=== PATIENT | female | born 1965 | race Caucasian/White ===

== ENCOUNTER 2019-01-04 14:47 | Emergency (ER) | payer MEDICAID ==
[2019-01-04] MEDS ORDERED: Lactated Ringers 1,000 ML IV ONE (16:05)
[2019-01-04] MEDS ORDERED: Sodium Chloride 0.9% 80 ML IV ONE (16:19)
[2019-01-04] MEDS ORDERED: Sodium Chloride 0.9% 10 ML Syringe FLUSH ONE (16:19)
--- NOTE | 2019-01-04 16:23 | EDM.PDOC ---
ED HPI GENERAL MEDICAL PROBLEM - General Chief Complaint: Abdominal Pain Stated Complaint: LOWER ABD PAIN Time Seen by Provider: 01/04/19 15:45 Source of Information: Reports: Patient History Limitations: Reports: No Limitations - History of Present Illness INITIAL COMMENTS - FREE TEXT/NARRATIVE: 53 yo with concerns of RLQ abdominal pain Started insidiously approximately 3 days ago. Initially attributed to her IBS, but now it is severe. It it worse with movement, walking, sitting. It is a stabbing pain in the right lower quadrant with radiation into the pelvis. Associated anorexia and chills. No fever. No urinary symptoms. No N/V. No vaginal bleeding or discharge. No prior abdominal surgeries. 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: - Infectious Disease History Infectious Disease History: Reports: Chicken Pox - Past Surgical History Neurological Surgical History: Reports: Other (See Below) 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 Social & Family History - Tobacco Use Smoking Status *Q: Current Every Day Smoker Years of Tobacco use: 30 Packs/Tins Daily: 0.5 - Caffeine Use Caffeine Use: Reports: Coffee - Recreational Drug Use Recreational Drug Use: No ED ROS GENERAL - Review of Systems Review Of Systems: See Below Constitutional: Reports: Chills HEENT: Reports: No Symptoms Respiratory: Reports: No Symptoms Cardiovascular: Reports: No Symptoms Endocrine: Reports: No Symptoms GI/Abdominal: Reports: Abdominal Pain, Anorexia : Reports: No Symptoms Musculoskeletal: Reports: No Symptoms Skin: Reports: No Symptoms Neurological: Reports: No Symptoms Psychiatric: Reports: No Symptoms Hematologic/Lymphatic: Reports: No Symptoms Immunologic: Reports: No Symptoms ED EXAM, GI/ABD - Physical Exam Exam: See Below Exam Limited By: No Limitations General Appearance: Alert, No Apparent Distress Ears: Normal External Exam Nose: Normal Inspection Throat/Mouth: Normal Inspection Head: Atraumatic, Normocephalic Neck: Normal Inspection Respiratory/Chest: No Respiratory Distress, Lungs Clear Cardiovascular: Regular Rate, Rhythm GI/Abdominal Exam: Soft, No Distention, Tender (Reports diffuse lower abdominal tenderness with minimal light tough, will not tolerate exam) Back Exam: Normal Inspection. No: CVA Tenderness (R), CVA Tenderness (L) Extremities: Normal Inspection Neurological: Alert, Oriented Psychiatric: Normal Affect, Normal Mood Skin Exam: Warm, Dry Course - Vital Signs Last Recorded V/S: Last Vital Signs Temp 36.8 C 01/04/19 15:08 Pulse 66 01/04/19 17:34 Resp 22 H 01/04/19 15:08 BP 139/88 01/04/19 18:03 Pulse Ox 94 L 01/04/19 15:08 - Orders/Labs/Meds Orders: Active Orders 24 hr Category Date Time Status CANCER ANTIGEN (CA) 125 Stat Lab 01/04/19 18:23 Ordered CEA Stat Lab 01/04/19 18:24 Ordered UA W/MICROSCOPIC [URIN] Stat Lab 01/04/19 16:05 Ordered Iopamidol [Isovue-300 (61%)] Med 01/04/19 16:30 Active 100 ml IV . DIRECTED Medication Orders Iopamidol (Isovue-300 (61%)) 100 ml IV . DIRECTED CHU Last Admin: 01/04/19 16:59 Dose: 100 ml Labs: Laboratory Tests 01/04/19 01/04/19 Range/Units 16:08 16:08 WBC 10.8 (4.5-11.0) K/uL RBC 5.29 (3.30-5.50) M/uL Hgb 15.3 H (12.0-15.0) g/dL Hct 47.3 (36.0-48.0) % MCV 89 (80-98) fL MCH 29 (27-31) pg MCHC 32 (32-36) % Plt Count 281 (150-400) K/uL Sodium 137 L (140-148) mmol/L Potassium 4.1 (3.6-5.2) mmol/L Chloride 101 (100-108) mmol/L Carbon Dioxide 29 (21-32) mmol/L Anion Gap 11.1 (5.0-14.0) mmol/L BUN 11 (7-18) mg/dL Creatinine 0.9 (0.6-1.0) mg/dL Est Cr Clr Drug Dosing 57.17 mL/min Estimated GFR (MDRD) > 60 (>60) Glucose 73 L (74-106) mg/dL Calcium 9.3 (8.5-10.1) mg/dL Total Bilirubin 0.3 (0.2-1.0) mg/dL AST 19 (15-37) U/L ALT 16 (12-78) U/L Alkaline Phosphatase 72 (46-116) U/L Total Protein 7.8 (6.4-8.2) g/dL Albumin 3.5 (3.4-5.0) g/dL Globulin 4.3 H (2.3-3.5) g/dL Albumin/Globulin Ratio 0.8 L (1.2-2.2) Lipase 129 (73-393) U/L Meds: Medications Generic Name Dose Route Start Last Admin Trade Name Freq PRN Reason Stop Dose Admin Iopamidol 100 ml 01/04/19 16:30 01/04/19 16:59 Isovue-300 (61%) IV 100 ml . DIRECTED CHU Administration Discontinued Medications Generic Name Dose Route Start Last Admin Trade Name Freq PRN Reason Stop Dose Admin Lactated Ringer's 1,000 mls @ 999 mls/hr 01/04/19 16:05 01/04/19 17:09 Ringers, Lactated IV 01/04/19 17:05 999 mls/hr BOLUS ONE Administration Sodium Chloride 80 mls @ 3.5 mls/sec 01/04/19 16:19 01/04/19 16:59 Normal Saline IV 01/04/19 16:20 3 mls/sec ONETIME ONE Administration Sodium Chloride 10 ml 01/04/19 16:19 01/04/19 16:59 Saline Flush FLUSH 01/04/19 16:20 10 ml ONETIME ONE Administration - Re-Assessments/Exams Free Text/Narrative Re-Assessment/Exam: 53 yo presents with concerns of RLQ abdominal pain. Normal vitals. Exam difficult to ascertain as she will not allow even minimal palpation of the abdomen. Insidious in onset, although low in the abdomen this doesn't sound like ovarian torsion. Certainly concern for appendicitis. Will obtain labs, CT abd/pelvis 01/04/19 17:23 Free Text/Narrative Re-Assessment/Exam: CT with pelvic mass concerning for malignancy (? ovarian CA) with possible metastatic lesions in the lung and liver. Labs generally unremarkable. Discussed with [employer] [employer] and [employer] hands oncology surgeon at the [facility] and urgent follow up has been arranged. CA 125 and CEA drawn at their request. Pain control with prn percocet. Discussed return precautions. Discharged. 01/04/19 18:26 Departure - Departure Time of Disposition: 18:28 Disposition: Home, Self-Care 01 Clinical Impression: Ovarian mass - Discharge Information Referrals: Lydia Alicea NP [Primary Care Provider] - Forms: ED Department Discharge Additional Instructions: We have arranged follow up for you at the [facility]. If you do not hear from the gynecology/oncology clinic, their number is [phone] Take the pain meds as needed. Please call your primary doctor to arrange follow-up as well. Seek attention from a doctor if you develop increasing abdominal pain and distension. - My Orders Last 24 Hours: My Active Orders 01/04/19 16:05 UA W/MICROSCOPIC [URIN] Stat 01/04/19 16:30 Iopamidol [Isovue-300 (61%)] 100 ml IV . DIRECTED 01/04/19 18:23 CANCER ANTIGEN (CA) 125 Stat 01/04/19 18:24 CEA Stat - Assessment/Plan Last 24 Hours: My Active Orders 01/04/19 16:05 UA W/MICROSCOPIC [URIN] Stat 01/04/19 16:30 Iopamidol [Isovue-300 (61%)] 100 ml IV . DIRECTED 01/04/19 18:23 CANCER ANTIGEN (CA) 125 Stat 01/04/19 18:24 CEA Stat
[2019-01-04] MEDS ORDERED: Iopamidol 612 MG/ML 100 ML Bottle IV SCH (16:30)
--- NOTE | 2019-01-04 17:32 | CRLCT ---
HISTORY: Right lower quadrant pain and tenderness. TECHNIQUE: CT abdomen and pelvis with IV contrast. COMPARISON: None. FINDINGS: Abdomen: 3.2 x 3.3 cm heterogeneous lesion in segment 7 majority of the lesion is hyperenhancing. No other liver lesions. No bile duct dilation. No pancreatic mass or pancreatic duct dilation. No spleen lesions. No adrenal nodules. Kidneys enhance symmetrically. No renal mass. No hydronephrosis. Accessory retroaortic left renal vein. No dilated bowel. Appendix is normal. Small amount of free fluid in the abdomen and pelvis. No lymphadenopathy. Mild atherosclerosis. Abdominal aorta is normal caliber. Pelvis: 13.5 x 9.7 x 10.7 cm pelvic mass with solid and cystic components. Mass abuts adnexal structures bilaterally and the uterine fundus. No lymphadenopathy. Musculoskeletal: Transitional lumbosacral anatomy. Degenerative changes of the spine and sacroiliac joints. No lytic or blastic bone lesions. Lower chest: Partially imaged nodule in the right middle lobe. Imaged portion of the nodule measures 1.4 cm transverse dimension (series 2 image 1). IMPRESSION: 1. 13.5 x 9.7 x 10.7 cm cystic and solid pelvic mass, possibly malignant. Mass abuts bilateral adnexal structures and may be adnexal in origin. 2. Small amount of free fluid in the abdomen and pelvis. 3. 3.3 cm heterogeneous hyperenhancing lesion in segment 7 of the liver. Differential considerations include primary liver lesion such as hemangioma or metastasis. Recommend evaluation with contrast-enhanced MRI of the liver. 4. Partially imaged pulmonary nodule in the right middle lobe measures at least 1.4 cm. Recommend evaluation with chest CT. 5. No lymphadenopathy in the abdomen pelvis. Please note that all CT scans at this facility use dose modulation, iterative reconstruction, and/or weight-based dosing when appropriate to reduce radiation dose to as low as reasonably achievable. Dictated by Conner White MD @ Jan 04 2019 5:20PM Signed by Dr. Conner White @ Jan 04 2019 5:31PM
== END 2019-01-04 18:35 | disposition home or self-care (01) ==
LOC: JP.ED 14:47
DX: N83.9 Noninflammatory disorder of ovary, fallopian tube and broad ligament, unspecified (principal); F17.210 Nicotine dependence, cigarettes, uncomplicated
CPT/HCPCS: 36415; 74177; 80053; 82378; 83690; 85027; 86304; 96360; 99284; J7030; J7120; Q9967; 99283